=== PATIENT | female | born 1970 | race Caucasian/White ===

== ENCOUNTER 2019-03-22 16:47 | Emergency (ER) | payer MEDICAID ==
[~2019-03-22] VITALS: Ht 165.1 cm; Wt 68.2 kg
[~2019-03-22 16:47] MED LIST: BAC10T PO; IBUP-1051 PO; NO HOME MEDS; VAL5T PO
[2019-03-22 17:03] VITALS: BP 150/97
[2019-03-22] MEDS ORDERED: LIDOcaine Viscous 15ml cup MM STA (18:02)
[2019-03-22] MEDS ORDERED: LIDO20SO16 PO (18:21)
[2019-03-22] MEDS ORDERED: ACET-2119 PO (18:27)
[2019-03-22] MEDS ORDERED: IBUP-1985 PO (18:27)
== END 2019-03-22 18:31 | disposition home or self-care (01) ==
LOC: ER 16:49
DX: K08.89 Other specified disorders of teeth and supporting structures (principal); K02.9 Dental caries, unspecified; K03.81 Cracked tooth; G89.29 Other chronic pain; Z79.899 Other long term (current) drug therapy
CPT/HCPCS: 99283

== ENCOUNTER 2021-04-27 10:32 | Emergency (ER) | payer MEDICAID ==
[~2021-04-27] VITALS: Ht 162.6 cm; Wt 54.2 kg
[~2021-04-27 10:32] MED LIST changes: +DIAZ5TAB22 PO; +IBUP-1985 PO; +LIDO20SO16 PO; -VAL5T PO
[2021-04-27 11:11] LABS: CLARITY,URINE TURBID (Clear); COLOR,URINE BROWN (Yellow)
[2021-04-27 11:12] LABS: URINE HCG NEGATIVE (NEG)
[2021-04-27 11:18] LABS: UA COLLECTION TYPE CLN CATCH MIDSTREAM
[2021-04-27 11:20] LABS: MUCUS STRANDS FEW /LPF (Neg); RBC,URINE TNTC /HPF (0-2); SQUAMOUS EPITHELIAL CELL,UR NONE SEEN /LPF (FEW); WBC CLUMPS,URINE MODERATE /HPF (NEGATIVE); WBC,URINE TNTC /HPF (0-4)
[2021-04-27 11:21] LABS: BACTERIA,URINE 2+ /HPF (Neg)
[2021-04-27 12:04] LABS: BASOPHILS # (AUTO) 0.1 X10'3 (0-0.2); BASOPHILS % (AUTO) 0.5 % (0-1); EOSINOPHILS # (AUTO) 0.1 X10'3 (0-0.9); EOSINOPHILS % (AUTO) 0.4 % (0-6); HEMATOCRIT 41.7 % (35.0-45.0); HEMOGLOBIN 13.5 g/dl (12.0-16.0); LYMPHOCYTES # (AUTO) 1.7 X10'3 (1.1-4.8); LYMPHOCYTES % (AUTO) 12.6 % (21-51); MEAN CORPUSCULAR HEMOGLOBIN 29.6 PG (27.0-31.0); MEAN CORPUSCULAR HGB CONC 32.3 g/dL (33.0-36.5); MEAN CORPUSCULAR VOLUME 91.5 FL (78-98); MEAN PLATELET VOLUME 7.7 FL (7.4-10.4); MONOCYTES # (AUTO) 1.2 X10'3 (0-0.9); MONOCYTES % (AUTO) 8.8 % (2-12); NEUTROPHILS # (AUTO) 10.8 X10'3 (1.8-7.7); NEUTROPHILS % (AUTO) 77.7 % (42-75); PLATELET COUNT 338 X10'3 (140-440); RED BLOOD COUNT 4.56 X10'6 (4.20-5.60); RED CELL DISTRIBUTION WIDTH 14.1 % (11.5-14.5); WHITE BLOOD COUNT 13.9 X10'3 (4.5-11.0)
[2021-04-27 12:09] LABS: ALBUMIN 3.8 G/DL (3.4-5.0); ANION GAP 8 (8-16); BLOOD UREA NITROGEN 9 MG/DL (7-18); BUN/CREATININE RATIO 10.6 (6.6-38.0); CALCIUM 8.7 MG/DL (8.5-10.1); CHLORIDE 103 MMOL/L (99-107); CREATININE 0.85 MG/DL (0.40-0.90); GLUCOSE 103 MG/DL (70-104); SODIUM 139 MMOL/L (135-145); TOTAL CARBON DIOXIDE 27.6 MMOL/L (24-32); eGFR 71 ML/MIN
[2021-04-27] MEDS ORDERED: iohexol 300mg/ml 100ml inj. ONE (12:17)
[2021-04-27] MEDS ORDERED: CEFD300C3 PO (13:36)
[2021-04-27 14:22] VITALS: BP 127/100
== END 2021-04-27 14:29 | disposition home or self-care (01) ==
LOC: ER 10:33
DX: N12 Tubulo-interstitial nephritis, not specified as acute or chronic (principal); K86.89 Other specified diseases of pancreas; F17.200 Nicotine dependence, unspecified, uncomplicated; G89.29 Other chronic pain; Z79.899 Other long term (current) drug therapy
CPT/HCPCS: 36415; 74178; 80048; 81001; 81025; 85025; 87077; 87088; 87186; 99285; Q9967

== ENCOUNTER 2022-03-08 04:38 | Emergency (ER) | payer MEDICAID ==
[~2022-03-08] VITALS: Ht 162.6 cm; Wt 47.7 kg
[2022-03-08] MEDS ORDERED: ondansetron/PF 4mg/2ml inj IV ONE (08:45)
[2022-03-08 09:21] LABS: CLARITY,URINE CLOUDY (Clear); COLOR,URINE YELLOW (Yellow); GLUCOSE, URINE NEGATIVE (Neg); KETONES,URINE NEGATIVE (Neg); LEUKOCYTE ESTERASE ,URINE NEGATIVE (Neg); NITRITES, URINE NEGATIVE (Neg); OCCULT BLOOD,URINE NEGATIVE (Neg); PH,URINE 7.5 (4.8-8.0); PROTEIN,URINE 100 mg/dl (Neg); UROBILINOGEN,URINE 0.2 E.U/dL (0.2-1.0)
[2022-03-08] MEDS ORDERED: normal saline 1000ML IV soln IVB ONE (09:25)
[2022-03-08 09:26] LABS: UA COLLECTION TYPE STRAIGHT CATH
[2022-03-08 09:28] LABS: BACTERIA,URINE FEW /HPF (Neg); COARSE GRANULAR CAST 0-3 /LPF (NEGATIVE); FINE GRANULAR CAST 0-3 /LPF (NEGATIVE); MUCUS STRANDS NONE SEEN /LPF (Neg); RBC,URINE NONE SEEN /HPF (0-2); RENAL CELLS, URINE FEW /HPF; SQUAMOUS EPITHELIAL CELL,UR FEW /LPF (FEW)
[2022-03-08 10:43] LABS: BASOPHILS % (AUTO) 0.4 % (0-1); EOSINOPHILS % (AUTO) 0.1 % (0-6); HEMOGLOBIN 12.6 g/dl (12.0-16.0); LYMPHOCYTES # (AUTO) 1.5 X10'3 (1.1-4.8); LYMPHOCYTES % (AUTO) 22.7 % (21-51); MEAN CORPUSCULAR HGB CONC 32.3 g/dL (33.0-36.5); MEAN CORPUSCULAR VOLUME 80.5 FL (78-98); MEAN PLATELET VOLUME 8.3 FL (7.4-10.4); MONOCYTES # (AUTO) 0.5 X10'3 (0-0.9); MONOCYTES % (AUTO) 7.8 % (2-12); NEUTROPHILS # (AUTO) 4.7 X10'3 (1.8-7.7); PLATELET COUNT 226 X10'3 (140-440); RED BLOOD COUNT 4.84 X10'6 (4.20-5.60); RED CELL DISTRIBUTION WIDTH 17.1 % (11.5-14.5); WHITE BLOOD COUNT 6.8 X10'3 (4.5-11.0)
[2022-03-08 10:54] LABS: APTT 31 SECONDS (22-32)
[2022-03-08 10:58] LABS: ALANINE AMINOTRANSFERASE 33 U/L (12-78); ALBUMIN 3.1 G/DL (3.4-5.0); ALBUMIN/GLOBULIN RATIO 0.8 (1.1-1.5); ALKALINE PHOSPHATASE 87 IU/L (46-116); ANION GAP 5 (8-16); ASPARTATE AMINO TRANSFERASE 41 U/L (10-37); BILIRUBIN,TOTAL 0.2 MG/DL (0.1-1.0); BLOOD UREA NITROGEN 28 MG/DL (7-18); BUN/CREATININE RATIO 26.4 (6.6-38.0); CALCIUM 7.8 MG/DL (8.5-10.1); CHLORIDE 105 MMOL/L (99-107); CREATININE 1.06 MG/DL (0.40-0.90); GLUCOSE 104 MG/DL (70-104); LIPASE 265 U/L (73-393); POTASSIUM 3.9 MMOL/L (3.5-5.1); SODIUM 137 MMOL/L (135-145); TOTAL CARBON DIOXIDE 26.7 MMOL/L (24-32); eGFR 54 ML/MIN
[2022-03-08] MEDS ORDERED: ringers solution, lactated 1000ml IV soln IV ONE (11:05)
[2022-03-08] MEDS ORDERED: iohexol 300mg/ml 100ml inj. ONE (11:29)
[2022-03-08 14:06] VITALS: BP 119/66
== END 2022-03-08 14:15 | disposition home or self-care (01) ==
LOC: ER 04:38
DX: R10.84 Generalized abdominal pain (principal); G89.29 Other chronic pain; M54.50 Low back pain, unspecified; F17.200 Nicotine dependence, unspecified, uncomplicated; F15.20 Other stimulant dependence, uncomplicated
CPT/HCPCS: 36415; 70450; 71045; 74177; 80053; 81001; 83690; 85025; 85610; 85730; 87088; 96361; 96374; 99285; J2405; J3490; J7030; J7120; Q9967

== ENCOUNTER 2024-01-29 15:55 | Emergency (ER) | payer OTHER, MEDICAID ==
[~2024-01-29] VITALS: Ht 162.6 cm; Wt 57.7 kg
[2024-01-29 17:21] LABS: APTT 25 SECONDS (22-32); INR 0.9 INR; PROTHROMBIN TIME 10.1 SECONDS (9.0-12.0)
[2024-01-29 18:48] VITALS: BP 138/79; PULSE 82; RESP 17; TEMP 98; O2SAT 98
== END 2024-01-29 18:50 | disposition home or self-care (01) ==
LOC: ER 15:56
DX: S09.90XA Unspecified injury of head, initial encounter (principal); G89.29 Other chronic pain; M54.9 Dorsalgia, unspecified; F15.90 Other stimulant use, unspecified, uncomplicated; Z72.89 Other problems related to lifestyle; Z88.8 Allergy status to other drugs, medicaments and biological substances; Z79.1 Long term (current) use of non-steroidal anti-inflammatories (NSAID); Z79.899 Other long term (current) drug therapy; W01.0XXA Fall on same level from slipping, tripping and stumbling without subsequent striking against object, initial encounter; Y93.89 Activity, other specified; Y92.89 Other specified places as the place of occurrence of the external cause; Y99.8 Other external cause status
CPT/HCPCS: 36415; 70450; 72125; 85610; 85730; 99284

== ENCOUNTER 2024-08-02 15:59 | Outpatient (CLI) | payer MEDICAID | END 2024-08-02 23:59 | disposition home or self-care (01) | LOC: RAD 15:59 | PROVIDERS: ATTEND Nurse Practitioner Psychiatric/Mental Health | DX: F29 Unspecified psychosis not due to a substance or known physiological condition (principal); Z79.899 Other long term (current) drug therapy | CPT/HCPCS: 93005 ==